=== PATIENT | male | born 1985 | race Caucasian/White ===

== ENCOUNTER 2020-08-22 20:49 | Emergency (ER) | payer OTHER ==
[~2020-08-22 20:49] MED LIST: BACTROBAN NASAL1 G1 TOP; FLONASE 0.05% N16 GM; MEDROL DOSEPAK 24 MG PO; ZITHROMAX250 MG PO; ZOFRAN4 MG PO
== END 2020-08-22 21:50 | disposition left against medical advice (07) ==
LOC: ER1 20:49
DX: Z53.21 Procedure and treatment not carried out due to patient leaving prior to being seen by health care provider (principal)

== ENCOUNTER 2021-05-13 21:15 | Emergency (ER) | payer OTHER ==
[2021-05-14] MEDS ORDERED: NAPROXEN500 MG PO (04:50)
== END 2021-05-14 05:00 | disposition home or self-care (01) ==
LOC: ER1 21:15
DX: M79.641 Pain in right hand (principal); M79.644 Pain in right finger(s); F17.210 Nicotine dependence, cigarettes, uncomplicated
CPT/HCPCS: 29130; 73130; 99283